=== PATIENT | male | born 1955 | race Caucasian/White ===

== ENCOUNTER 2021-12-12 23:10 | Inpatient (IN) ==
[2021-12-12 23:36] LABS: Basophils # 0.1 10*3/uL (0.0-0.2); Basophils % 0.5 % (0.0-0.8); Eosinophils # 0.2 10*3/uL (0.0-0.87); Hematocrit 41.7 VOL% (42.0-52.0); Hemoglobin 13.6 GM/DL (14.0-18.0); Immature Granulocytes % 0.9 %; Immature Granulocytes Absolute 0.09 #; Lymphocytes # 2.2 10*3/uL (1.4-4.0); Lymphocytes % 21.9 % (21.2-54.2); Mean Corpuscular HGB Conc 32.6 GM/DL (32-36); Mean Corpuscular Volume 97.4 FL (87-102); Mean Platelet Volume 10.1 FL (9.6-12.0); Monocytes # 0.8 10*3/uL (0.11-0.8); Monocytes % 8.2 % (1.7-12.7); Neutrophils % 66.5 % (38.7-73.9); Platelet Count 245 T/CUMM (130-400); Red Blood Count 4.28 MC/CUMM (3.8-5.5)
[2021-12-12 23:52] LABS: PT Patient Result 11.1 SECS (10.1-12.1); Partial Thromboplastin Time 30.5 SECS (23.7-32.9)
[2021-12-13 00:05] LABS: Alanine Aminotransferase 17 U/L (16-61); Albumin 2.8 G/DL (3.4-5.0); Alkaline Phosphatase 109 U/L (45-117); Aspartate Amino Transferase 17 U/L (0-37); Blood Urea Nitrogen 14 MG/DL (7-18); Calcium 8.2 MG/DL (8.5-10.1); Carbon Dioxide 24 MMOL/L (21-32); Chloride 105 MMOL/L (98-107); Glucose 71 MG/DL (74-106); Osmolality,Calculated 273.7 MOS/KG (273-304); Sodium 138 MMOL/L (136-145); Total Protein 5.8 G/DL (6.4-8.2)
[2021-12-13] MEDS ORDERED: FUROSEMIDE 40 MG/4 ML VIAL IV STA (00:13)
[2021-12-13] MEDS ORDERED: LEVOFLOXACIN INJ 500 MG/100 ML PREMIX IV ONE (00:13)
[2021-12-13] MEDS ORDERED: POTASSIUM CHLORIDE 20 MEQ TABLET PO STA (00:14)
[2021-12-13] MEDS ORDERED: methylPREDNISolone SOD SUC 125 MG/2 ML VIAL IV STA (00:17)
[2021-12-13] MEDS ORDERED: ALBUTEROL/IPRATROPIUM 3 ML NEB RESP TX STA (00:17)
[2021-12-13] MEDS ORDERED: SIMETHICONE CHEW 125 MG TABLET PO PRN (00:20)
[2021-12-13] MEDS ORDERED: guaiFENesin/DM ER 600-30 MG TABLET PO PRN (00:20)
[2021-12-13] MEDS ORDERED: ACETAMINOPHEN 325 MG TABLET PO PRN (00:20)
[2021-12-13] MEDS ORDERED: ONDANSETRON 4 MG/2 ML VIAL IV PRN (00:20)
[2021-12-13] MEDS ORDERED: GLUCAGON 1 MG VIAL IM PRN ×2 (00:20→23:17)
[2021-12-13] MEDS ORDERED: LACTATED RINGERS 500 ML IV SCH (00:30)
[2021-12-13] MEDS: ALBUTEROL/IPRATROPIUM 3 ML NEB RESP TX SCH ×4 (00:36→19:13)
[2021-12-13] MEDS ORDERED: DEXTROSE 10% 250 ML BAG IV PRN ×2 (00:38→23:31)
[2021-12-13] MEDS ORDERED: LACTATED RINGERS 500 ML IV ONE (01:06)
[2021-12-13] MEDS ORDERED: MAGNESIUM SULF RIDER 4 GM/100 ML PREMIX IV PRN (01:08)
[2021-12-13] MEDS ORDERED: MAGNESIUM SULF RIDER 2 GM/50 ML PREMIX IV PRN (01:08)
[2021-12-13] MEDS ORDERED: POTASSIUM CHLORIDE RIDER 10 MEQ/100 ML PREMIX IV PRN (01:08)
[2021-12-13] MEDS: APIXABAN 5 MG TABLET PO SCH ×2 (01:44→11:06)
[2021-12-13 02:13] LABS: Basophils % 0.5 % (0.0-0.8); Eosinophils # 0.1 10*3/uL (0.0-0.87); Eosinophils % 1.7 % (0.00-10.9); Hematocrit 39.9 VOL% (42.0-52.0); Hemoglobin 13.3 GM/DL (14.0-18.0); Immature Granulocytes % 0.8 %; Immature Granulocytes Absolute 0.07 #; Lymphocytes # 1.4 10*3/uL (1.4-4.0); Lymphocytes % 16.2 % (21.2-54.2); Mean Corpuscular HGB Conc 33.3 GM/DL (32-36); Mean Corpuscular Volume 95.7 FL (87-102); Monocytes # 0.4 10*3/uL (0.11-0.8); Monocytes % 5.2 % (1.7-12.7); Neutrophils % 75.6 % (38.7-73.9); Platelet Count 214 T/CUMM (130-400); Red Blood Count 4.17 MC/CUMM (3.8-5.5); White Blood Count 8.4 T/CUMM (4-12)
[2021-12-13 02:27] LABS: Arterial Base Excess iSTAT -2 MMOL/L (-2.5-2.5); Arterial Bicarbonate iSTAT 23.2 MMOL/L (20-26); Arterial O2 Saturation iSTAT 95 % (95-100); Arterial PCO2 iSTAT 41 MM HG (35-48); Arterial PO2 iSTAT 77 MM HG (80-95); Arterial Total CO2 iSTAT 24 MMO/L (23-27); Arterial pH iSTAT 7.366 (7.35-7.45)
[2021-12-13 02:46] LABS: Calcium 8.4 MG/DL (8.5-10.1); Potassium 3.1 MMOL/L (3.5-5.1)
[2021-12-13] MEDS: POTASSIUM CHLORIDE 20 MEQ TABLET PO PRN ×3 (03:09→11:05)
[2021-12-13] MEDS: PIPERACILLIN/TAZOBACTAM 3,375 MG in SODIUM CHLORIDE 0.9% 100 ML IV SCH ×3 (03:09→20:58)
[2021-12-13] MEDS ORDERED: PANTOPRAZOLE 40 MG TABLET PO SCH (09:00)
[2021-12-13] MEDS ORDERED: FUROSEMIDE 40 MG/4 ML VIAL IV SCH (09:00)
[2021-12-13] MEDS ORDERED: NICOTINE 21 MG/24 HR PATCH TRANSDERM PRN (09:22)
[2021-12-13 10:05] LABS: Glucose,Urine (UA) Negative (Negative); Protein,Urine 100 mg/dL (Negative); Urine Appearance Cloudy (Clear); Urine Color Dark yellow (Yellow); Urine Specific Gravity 1.025 (1.001-1.035)
[2021-12-13 10:06] LABS: Bilirubin,Urine Small mg/dL (Negative); Blood, Urine Negative (Negative); Ketones,Urine Negative (Negative); Nitrite,Urine Negative (Negative); RBC,Urine 2 /HPF (0-4); Squamous Epithelial Cell,Urine Occasional /HPF (0-10); Urine Urobilinogen 0.2 eU/dL (<2.0)
[2021-12-13 10:07] LABS: Amorphous Crystals,Urine Moderate /HPF (Few); Mucus,Urine Occasional /LPF (Occasional)
[2021-12-13 10:30] LABS: Barbiturates Screen,Urine Negative (Negative); Benzodiazepines Screen,Urine Negative (Negative); Cannabinoid Screen,Urine Negative (Negative); Opiate Screen,Urine Negative (Negative); Phencyclidine Screen,Urine Negative (Negative)
[2021-12-13] MEDS: MULTIVITAMIN (CENTRUM) TABLET PO SCH (11:04)
[2021-12-13] MEDS: FOLIC ACID 1 MG TABLET PO SCH (11:04)
[2021-12-13] MEDS: TAMSULOSIN 0.4 MG CAPSULE PO SCH (11:04)
[2021-12-13] MEDS: DOCUSATE SODIUM 100 MG CAPSULE PO SCH ×2 (11:04→20:58)
[2021-12-13] MEDS: THIAMINE 100 MG TABLET PO SCH (11:05)
[2021-12-13] MEDS: ENOXAPARIN 40 MG/0.4 ML SYRINGE SUBCUT SCH (11:05)
[2021-12-13] MEDS: FUROSEMIDE 40 MG/4 ML VIAL IV SCH (15:44)
[2021-12-13] MEDS: chlordiazePOXIDE 25 MG CAPSULE PO PRN (22:51)
[2021-12-13] MEDS: INSULIN REGULAR 100 UNIT/ML SUBCUT SCH (23:41)
[2021-12-14] MEDS: ALBUTEROL/IPRATROPIUM 3 ML NEB RESP TX SCH ×4 (00:18→19:48)
[2021-12-14] MEDS ORDERED: LEVOFLOXACIN INJ 750 MG/150 ML PREMIX IV SCH (01:00)
[2021-12-14] MEDS: PIPERACILLIN/TAZOBACTAM 3,375 MG in SODIUM CHLORIDE 0.9% 100 ML IV SCH ×4 (04:45→22:15)
[2021-12-14 05:08] LABS: Basophils % 0.2 % (0.0-0.8); Eosinophils % 0.1 % (0.00-10.9); Hematocrit 39.1 VOL% (42.0-52.0); Hemoglobin 13.1 GM/DL (14.0-18.0); Immature Granulocytes % 0.5 %; Immature Granulocytes Absolute 0.06 #; Lymphocytes # 0.8 10*3/uL (1.4-4.0); Lymphocytes % 6.7 % (21.2-54.2); Mean Corpuscular HGB Conc 33.5 GM/DL (32-36); Mean Corpuscular Volume 95.8 FL (87-102); Monocytes # 0.8 10*3/uL (0.11-0.8); Monocytes % 6.7 % (1.7-12.7); Neutrophils % 85.8 % (38.7-73.9); Platelet Count 185 T/CUMM (130-400); Red Blood Count 4.08 MC/CUMM (3.8-5.5); White Blood Count 12.6 T/CUMM (4-12)
[2021-12-14 05:38] LABS: Bilirubin,Total 0.5 MG/DL (0.20-1.00); Phosphorous 3.3 MG/DL (2.5-4.9); Potassium 4.3 MMOL/L (3.5-5.1); Risk Ratio 2.62; Total Protein 6.8 G/DL (6.4-8.2); VLDL Cholesterol 17.4 MG/DL
[2021-12-14] MEDS: TAMSULOSIN 0.4 MG CAPSULE PO SCH (09:59)
[2021-12-14] MEDS: MULTIVITAMIN (CENTRUM) TABLET PO SCH (09:59)
[2021-12-14] MEDS: FOLIC ACID 1 MG TABLET PO SCH (09:59)
[2021-12-14] MEDS: DOCUSATE SODIUM 100 MG CAPSULE PO SCH ×2 (09:59→22:15)
[2021-12-14] MEDS: ENOXAPARIN 40 MG/0.4 ML SYRINGE SUBCUT SCH ×2 (10:00→15:15)
[2021-12-14] MEDS: FUROSEMIDE 40 MG/4 ML VIAL IV SCH ×2 (10:00→15:40)
[2021-12-14] MEDS: THIAMINE 100 MG TABLET PO SCH (10:00)
[2021-12-14] MEDS: INSULIN REGULAR 100 UNIT/ML SUBCUT SCH ×4 (10:01→22:16)
[2021-12-14] MEDS: chlordiazePOXIDE 25 MG CAPSULE PO PRN (10:10)
[2021-12-14] MEDS: SKIN HEALING OINT (AQUAPHOR) 50 GM TUBE TOP SCH (16:55)
[2021-12-14] MEDS ORDERED: METOPROLOL TARTRATE 5 MG/5 ML VIAL IV ONE (20:01)
[2021-12-14] MEDS: METOPROLOL TARTRATE 25 MG TABLET PO SCH (22:15)
[2021-12-15] MEDS: ALBUTEROL/IPRATROPIUM 3 ML NEB RESP TX SCH ×3 (00:53→13:54)
[2021-12-15] MEDS: PIPERACILLIN/TAZOBACTAM 3,375 MG in SODIUM CHLORIDE 0.9% 100 ML IV SCH ×2 (05:35→15:54)
[2021-12-15 05:53] LABS: Basophils % 0.2 % (0.0-0.8); Eosinophils % 0.4 % (0.00-10.9); Hematocrit 38.9 VOL% (42.0-52.0); Hemoglobin 12.6 GM/DL (14.0-18.0); Immature Granulocytes % 0.4 %; Immature Granulocytes Absolute 0.04 #; Lymphocytes # 1.3 10*3/uL (1.4-4.0); Lymphocytes % 13.2 % (21.2-54.2); Mean Corpuscular HGB Conc 32.4 GM/DL (32-36); Mean Platelet Volume 11.3 FL (9.6-12.0); Monocytes % 9.5 % (1.7-12.7); Neutrophils % 76.3 % (38.7-73.9); Platelet Count 176 T/CUMM (130-400); Red Blood Count 4.01 MC/CUMM (3.8-5.5); Red Cell Distribution Width 14.5 % (9.3-17.3); White Blood Count 10.1 T/CUMM (4-12)
[2021-12-15 06:03] LABS: Osmolality,Calculated 282.5 MOS/KG (273-304)
[2021-12-15] MEDS: INSULIN REGULAR 100 UNIT/ML SUBCUT SCH ×3 (07:46→16:32)
[2021-12-15] MEDS: FUROSEMIDE 40 MG/4 ML VIAL IV SCH (08:25)
[2021-12-15] MEDS: ENOXAPARIN 40 MG/0.4 ML SYRINGE SUBCUT SCH (08:26)
[2021-12-15] MEDS: TAMSULOSIN 0.4 MG CAPSULE PO SCH (08:26)
[2021-12-15] MEDS: THIAMINE 100 MG TABLET PO SCH (08:26)
[2021-12-15] MEDS: MULTIVITAMIN (CENTRUM) TABLET PO SCH (08:26)
[2021-12-15] MEDS: FOLIC ACID 1 MG TABLET PO SCH (08:26)
[2021-12-15] MEDS: METOPROLOL TARTRATE 25 MG TABLET PO SCH (08:26)
[2021-12-15] MEDS: SKIN HEALING OINT (AQUAPHOR) 50 GM TUBE TOP SCH (09:15)
[2021-12-15] MEDS: DOCUSATE SODIUM 100 MG CAPSULE PO SCH (09:15)
[2021-12-15] MEDS ORDERED: GABAPENTIN 100 MG CAPSULE PO SCH (15:00)
[2021-12-15] MEDS ORDERED: DILTIAZEM CD 120 MG CAPSULE PO SCH (15:00)
[2021-12-15 16:03] VITALS: BP 144/86
[2021-12-16] MEDS ORDERED: FUROSEMIDE 20 MG TABLET PO SCH (09:00)
[2021-12-16] MEDS ORDERED: CETIRIZINE 10 MG TABLET PO SCH (09:00)
== END 2021-12-15 17:16 | disposition home health service (06) | DRG 193 ==
LOC: N.ED 23:10 → N.5E 12-13 00:20 → SUATTDRO 12-13 00:20 → N.5E 12-13 01:10
PROVIDERS: ADMIT Family Medicine; ATTEND Internal Medicine Geriatric Medicine